=== PATIENT | female | born 1935 | race Caucasian/White ===

== ENCOUNTER 2021-07-11 16:44 | Inpatient (IN) | payer MEDICARE ==
[~2021-07-11] VITALS: Ht 157.5 cm; Wt 66.2 kg
[2021-07-11] MEDS ORDERED: ELIQUIS 5 MG TAB5 MG PO (19:59)
[2021-07-11] MEDS ORDERED: INDERAL TAB 4040 MG PO (20:00)
[2021-07-11] MEDS ORDERED: SPIRONOLACTONE50 MG PO (20:00)
[2021-07-11] MEDS ORDERED: CRESTOR20 MG PO (20:00)
[2021-07-11] MEDS ORDERED: CLORAZEPATE DI7.5 MG PO (20:00)
[2021-07-11] MEDS ORDERED: OMEPRAZOLE20 M1 PO (20:01)
[2021-07-11 23:22] LABS: HEMOGLOBIN 14.9 gm/dl (12.3-15.3); RED BLOOD COUNT 4.47 M/UL (4.00-5.10); WHITE BLOOD COUNT 17.7 K/UL (4.5-11.0)
[2021-07-12 00:02] LABS: BUN/CREATININE RATIO 25 (0-10)
[2021-07-13 07:56] LABS: HEMOGLOBIN 13.2 gm/dl (12.3-15.3); RED BLOOD COUNT 4.17 M/UL (4.00-5.10)
[2021-07-13 11:58] LABS: HEMOGLOBIN 12.5 gm/dl (12.3-15.3); RED BLOOD COUNT 3.82 M/UL (4.00-5.10); WHITE BLOOD COUNT 18.4 K/UL (4.5-11.0)
[2021-07-14 12:06] LABS: HEMOGLOBIN 10.8 gm/dl (12.3-15.3)
[2021-07-14 12:08] LABS: RED BLOOD COUNT 3.29 M/UL (4.00-5.10); WHITE BLOOD COUNT 13.1 K/UL (4.5-11.0)
--- NOTE | 2021-07-14 12:20 | NUR ---
Dr. Li aware of not being able to get labs on pt...see provider notification..no new orders. She stated that just the CBC was fine.
[2021-07-15 10:40] LABS: HEMOGLOBIN 10.7 gm/dl (12.3-15.3); RED BLOOD COUNT 3.23 M/UL (4.00-5.10); WHITE BLOOD COUNT 12.3 K/UL (4.5-11.0)
[2021-07-15 11:29] LABS: BUN/CREATININE RATIO 50 (0-10)
[2021-07-16 06:34] LABS: HEMOGLOBIN 9.6 gm/dl (12.3-15.3); WHITE BLOOD COUNT 12.3 K/UL (4.5-11.0)
[2021-07-16 07:02] LABS: BUN/CREATININE RATIO 51 (0-10)
[2021-07-16 07:33] LABS: RED BLOOD COUNT 2.89 M/UL (4.00-5.10)
[2021-07-17 07:28] LABS: HEMOGLOBIN 9.5 gm/dl (12.3-15.3); RED BLOOD COUNT 2.92 M/UL (4.00-5.10); WHITE BLOOD COUNT 12.5 K/UL (4.5-11.0)
[2021-07-17 07:46] LABS: BUN/CREATININE RATIO 42 (0-10)
[2021-07-18 06:01] LABS: HEMOGLOBIN 9.7 gm/dl (12.3-15.3); RED BLOOD COUNT 2.94 M/UL (4.00-5.10); WHITE BLOOD COUNT 11.8 K/UL (4.5-11.0)
[2021-07-18 06:20] LABS: BUN/CREATININE RATIO 47 (0-10)
[2021-07-19 06:46] LABS: HEMOGLOBIN 9.6 gm/dl (12.3-15.3); RED BLOOD COUNT 2.95 M/UL (4.00-5.10)
[2021-07-19 07:29] LABS: BUN/CREATININE RATIO 38 (0-10)
[2021-07-20 05:36] LABS: HEMOGLOBIN 9.2 gm/dl (12.3-15.3); RED BLOOD COUNT 2.83 M/UL (4.00-5.10); WHITE BLOOD COUNT 11.5 K/UL (4.5-11.0)
[2021-07-20 06:23] LABS: BUN/CREATININE RATIO 35 (0-10)
[2021-07-20] MEDS ORDERED: CEFUROXIME250 MG PO (08:50)
[2021-07-20] MEDS ORDERED: HYDROCODON-ACE1 EAC2 PO (08:50)
[2021-07-20] MEDS ORDERED: INDERAL TAB 2020 MG PO (08:50)
== END 2021-07-20 15:30 | disposition home health service (06) | DRG 521 ==
LOC: M/S 18:36
PROVIDERS: Internal Medicine; Orthopaedic Surgery; Physician Assistant; Physician Assistant Medical; ADMIT Internal Medicine
PROC: 0SRS0J9 Replacement of Left Hip Joint, Femoral Surface with Synthetic Substitute, Cemented, Open Approach (ICD-10-PCS; principal; 2021-07-13 09:01)
PROC: 0PSJ34Z Reposition Left Radius with Internal Fixation Device, Percutaneous Approach (ICD-10-PCS; 2021-07-13 09:01)
DX: S72.092A Other fracture of head and neck of left femur, initial encounter for closed fracture (principal); G93.41 Metabolic encephalopathy; S32.000A Wedge compression fracture of unspecified lumbar vertebra, initial encounter for closed fracture; S52.572A Other intraarticular fracture of lower end of left radius, initial encounter for closed fracture; S52.612A Displaced fracture of left ulna styloid process, initial encounter for closed fracture; S42.292A Other displaced fracture of upper end of left humerus, initial encounter for closed fracture; J96.11 Chronic respiratory failure with hypoxia; N39.0 Urinary tract infection, site not specified; D62 Acute posthemorrhagic anemia; W01.0XXA Fall on same level from slipping, tripping and stumbling without subsequent striking against object, initial encounter; E78.5 Hyperlipidemia, unspecified; Z96.651 Presence of right artificial knee joint; I48.0 Paroxysmal atrial fibrillation; I25.10 Atherosclerotic heart disease of native coronary artery without angina pectoris; Z95.1 Presence of aortocoronary bypass graft; Z90.49 Acquired absence of other specified parts of digestive tract; Z90.89 Acquired absence of other organs; Z98.890 Other specified postprocedural states; Z88.5 Allergy status to narcotic agent; Z79.899 Other long term (current) drug therapy
CPT/HCPCS: 36415; 70450; 71045; 72100; 72170; 73030; 73100; 73200; 73552; 80048; 80053; 81001; 82652; 83735; 83880; 84100; 84439; 84443; 85025; 85027; 85610; 85652; 86140; 86850; 86900; 86901; 87086; 93005; 97110; 97110-GP-CQ; 97162; 97167; 97530-GP-CQ; 97535; C1776; J0690; J0696; J1100; J2001; J2270; J2370; J2405; J2704; J2710; J2765; J2795; J3010; J3370; J7120